=== PATIENT | female | born 1965 | race African-American/Black ===

== ENCOUNTER 2016-12-30 21:17 | Emergency (ER) | payer SELFPAY ==
[~2016-12-30] VITALS: Ht 157.5 cm; Wt 58.0 kg
[2016-12-30 21:16] VITALS: O2SAT 100
[~2016-12-30 21:17] MED LIST: FLEX10TA OR; LISI10TA PO; OMEP20TA PO; PERC5TAB12 PO; ZOFR4TAB PO
[2016-12-30 21:21] VITALS: BP 196/106; PULSE 110; RESP 16; TEMP 98.6; O2SAT 96
[2016-12-30 21:27] VITALS: O2SAT 100
[2016-12-30 21:28] VITALS: BP_SYST 187; BP_SYST 196; BP_DIAS 101; BP_DIAS 106
--- NOTE | 2016-12-30 21:32 | PD ---
HPI Chief Complaint: Altered Mental Status Time Seen by Provider: 21:23 Travel History International Travel<30 days: No Contact w/Intl Traveler<30days: No Traveled to known affect area: No History of Present Illness HPI The patient is a 51 year old female who presents to the [facility] emergency department with a history of being found by her family unresponsive. 10 minutes prior to this the patient had been awake and alert, according to family reports to ambulance services. The patient on ambulance services arrival was noted to have O2 saturations in the low 60s on room air. Respiratory rate was 4, GCS was 3 with pinpoint pupils. The patient had IV access obtained. The patient was placed on supplemental oxygen. The patient's CO2 was noted to be 90-100 and the patient was bagged en route to this facility. Narcan was administered up to 0.8 mg and then the patient became awake and alert. The patient arrives with a GCS of 15. The patient reports that she did take Lortab for pain. She is unsure of the dose. She reports that she normally takes Lortab for low back discomfort. She denies using any other drugs. The patient reports having a history of high blood pressure, however she reports that she did take her lisinopril today. The patient denies any recent fevers, cough, congestion, neck pain, chest pain, shortness of breath , abdominal pain, vomiting, diarrhea, urinary symptoms, one-sided weakness, slurred speech, facial droop, vision changes, or difficulty with word finding ability. PFSH Past Medical History Narrative Medical The patient's past medical history is significant for chronic low back pain, Hx Anticoagulant Therapy: No Arthritis: Yes (L. ANKLE ) Asthma: No Autoimmune Disease: No Cancer: No Cardiovascular Problems: Yes Chemotherapy: No COPD: No Cerebrovascular Accident: No Diabetes: No Diminished Hearing: No Endocrine: No GERD: Yes (GASTRITIS) Genitourinary: No Hypertension: Yes Immune Disorder: No Musculoskeletal: Yes Neurologic: No Psychiatric: No Reproductive: No Respiratory: No ?: Not Tubal Ligation: Yes Past Surgical History Narrative Surgical The patient's past surgical history is significant for a bilateral tubal ligation. Abdominal Surgery: Yes (TUBAL LIGATION) Hysterectomy: No Other Surgery: Yes Social History Alcohol Use: Yes (1-2x a week ) Tobacco Use: Yes (two cigars daily) Substance Use: No Allergies-Medications (Allergen,Severity, Reaction): Coded Allergies: No Known Allergies (Verified , 12/30/16) Reported Meds & Prescriptions Reported Meds & Active Scripts Active Zofran (Ondansetron Hcl) 4 Mg Tab 4 Mg PO BID Percocet 5-325 mg (Oxycodone/Acetaminophen) Oxycodone 5/325 Acetaminophen Tab 1- 2 Tab PO Q6H PRN Lisinopril/Hctz 20 mg/12.5 mg 20 mg/12.5 mg Tab 1 Tab PO DAILY Reported Omeprazole 20 mg (Omeprazole) 20 Mg Tab 20 Mg PO DAILY Flexeril (Cyclobenzaprine HCl) 10 Mg Tab 10 Mg OR HSPRN Review of Systems Except as stated in HPI: all other systems reviewed are Neg General / Constitutional: No: Fever Eyes: No: Visual changes HENT: No: Headaches Cardiovascular: No: Chest Pain or Discomfort Respiratory: No: Shortness of Breath Gastrointestinal: No: Nausea, Vomiting, Diarrhea, Abdominal Pain Genitourinary: No: Dysuria Musculoskeletal: No: Pain Skin: No Rash Neurologic: Positive: Change in Mentation, No: Weakness, Focal Abnormalities, Slurred Speech, Sensory Disturbance Psychiatric: No: Depression Endocrine: No: Polydipsia Hematologic/Lymphatic: No: Easy Bruising Physical Exam Narrative General: The patient is a well-developed well-nourished female in no acute distress on arrival. Head and Neck exam: Head is normocephalic atraumatic. Eyes: EOMI, pupils are equal round and reactive to light. Nose: Midline septum with pink mucous membranes Mouth: Dentition unremarkable. Moist mucus membranes. Posterior oropharynx is not erythematous. No tonsillar hypertrophy. Uvula midline. Airway patent. Neck: No palpable lymphadenopathy. No nuchal rigidity. No thyromegaly. Cardiovascular: Sinus tachycardia in the low 100s without murmurs, gallops, or rubs. No pulse deficit to the extremities and simultaneous auscultation and palpation of her radial artery. Lungs: Clear to auscultation bilaterally. No wheezes, rhonchi, or rales. Abdomen: Soft, without tenderness to palpation in all 4 quadrants of the abdomen. No guarding, rebound, or rigidity. Normal bowel sounds are audible. No tenderness on palpation of McBurney's point. Extremities: No clubbing, cyanosis, or edema. 2+ pulses in all 4 extremities. No calf tenderness on palpation. Back: No spinous process tenderness to palpation. No costovertebral angle tenderness to palpation. Neurologic Exam: Grossly nonfocal. The patient has strength that is 5 over 5 in all 4 extremities intact sensation over all dermatomes. No evidence of facial asymmetry. The patient is oriented to person, place, time, and situation. Skin Exam: No rash noted. Intact skin that is warm and dry. Data Data Last Documented VS Vital Signs Date Time Temp Pulse Resp B/P Pulse Ox O2 Delivery O2 Flow Rate FiO2 12/30/16 23:56 88 18 160/70 99 Room Air 12/30/16 22:32 2 12/30/16: 98.6 Orders Electrocardiogram (12/30/16:) Complete Blood Count With Diff (12/30/16:) Basic Metabolic Panel (Bmp) (12/30/16 21:23) Creatine Kinase (Cpk) (12/30/16:23) Ckmb (Isoenzyme) Profile (12/30/16:) Troponin I (12/30/16 21:) B-Type Natriuretic Peptide (12/30/16 21:23) Prothrombin Time / Inr (Pt) (12/30/16:) Act Partial Throm Time (Ptt) (12/30/16:) Urinalysis - C+S If Indicated (12/30/16 21:) Thyroid Stimulating Hormone (12/30/16 21:23) Chest, Single Ap (12/30/16 21:23) Ct Brain W/O Iv Contrast(Rout) (12/30/16 21:23) Iv Access Insert/Monitor (12/30/16 21:23) Ecg Monitoring (12/30/16 21:23) Oximetry (12/30/16 21:23) Drug Screen, Random Urine (12/30/16 21:23) Alcohol (Ethanol) (12/30/16 21:23) Salicylates (Aspirin) (12/30/16 21:23) Tylenol (Acetaminophen) (12/30/16 21:23) Sodium Chlor 0.9% 1000 Ml Inj (Ns 1000 M (12/30/16 22:15) CKMB (12/30/16 21:34) CKMB% (12/30/16 21:34) Potassium Chloride Eff (K-Lyte Cl Eff) (12/30/16 23:45) Ns + Kcl 20 Meq Inj (Ns + Kcl 20 Meq Inj (12/30/16 23:45) Labs Laboratory Tests Test 12/30/16 12/30/16 12/30/16 19:26 21:34 23:36 White Blood Count 6.3 TH/MM3 Red Blood Count 4.29 MIL/MM3 Hemoglobin 12.0 GM/DL Hematocrit 37.6 % Mean Corpuscular Volume 87.7 FL Mean Corpuscular Hemoglobin 27.9 PG Mean Corpuscular Hemoglobin 31.9 % Concent Red Cell Distribution Width 13.5 % Platelet Count 186 TH/MM3 Mean Platelet Volume 9.3 FL Neutrophils (%) (Auto) 27.0 % Lymphocytes (%) (Auto) 60.9 % Monocytes (%) (Auto) 10.4 % Eosinophils (%) (Auto) 1.2 % Basophils (%) (Auto) 0.5 % Neutrophils # (Auto) 1.7 TH/MM3 Lymphocytes # (Auto) 3.9 TH/MM3 Monocytes # (Auto) 0.7 TH/MM3 Eosinophils # (Auto) 0.1 TH/MM3 Basophils # (Auto) 0.0 TH/MM3 CBC Comment DIFF FINAL Differential Comment Prothrombin Time 10.7 SEC Prothromb Time International 1.0 RATIO Ratio Activated Partial 25.6 SEC Thromboplast Time Sodium Level 139 MEQ/L Potassium Level 3.1 MEQ/L Chloride Level 102 MEQ/L Carbon Dioxide Level 27.2 MEQ/L Anion Gap 10 MEQ/L Blood Urea Nitrogen 18 MG/DL Creatinine 1.41 MG/DL Estimat Glomerular Filtration 48 ML/MIN Rate Random Glucose 195 MG/DL Calcium Level 8.2 MG/DL Total Creatine Kinase 253 U/L Creatine Kinase MB 1.2 NG/ML Creatine Kinase MB % 0.5 % Troponin I 0.05 NG/ML B-Type Natriuretic Peptide 41 PG/ML Thyroid Stimulating Hormone 9.140 uIU/ML 3rd Gen Salicylates Level LESS THAN 1.7 MG/DL Acetaminophen Level 4.9 MCG/ML Ethyl Alcohol Level LESS THAN 3 MG/DL Urine Color LIGHT-YELLOW Urine Turbidity CLEAR Urine pH 6.0 Urine Specific Hayes 1.009 Urine Protein NEG mg/dL Urine Glucose (UA) NEG mg/dL Urine Ketones NEG mg/dL Urine Occult Blood SMALL Urine Nitrite NEG Urine Bilirubin NEG Urine Urobilinogen LESS THAN 2.0 MG/DL Urine Leukocyte Esterase NEG Urine RBC 1 /hpf Urine WBC 2 /hpf Urine Squamous Epithelial <1 /hpf Cells Urine Bacteria RARE /hpf Urine Hyaline Casts 5 /lpf Urine Mucus FEW /lpf Microscopic Urinalysis Comment CULT NOT INDICATED Urine Opiates Screen POS Urine Barbiturates Screen NEG Urine Amphetamines Screen NEG Urine Benzodiazepines Screen NEG Urine Cocaine Screen POS Urine Cannabinoids Screen POS MDM Medical Decision Making Medical Screen Exam Complete: Yes Emergency Medical Condition: Yes Medical Record Reviewed: Yes Interpretation(s) Last Impressions Head CT 12/30/162122 Signed Impressions: Service Date/Time: Friday, December 30, 2016 21:46 - CONCLUSION: No acute intracranial disease. Stu Mooney MD Chest X-Ray 12/30/162122 Signed Impressions: Service Date/Time: Friday, December 30, 2016 21:36 - CONCLUSION: No acute disease. Stu Mooney MD Differential Diagnosis Accidental narcotic overdose, versus intentional overdose, versus intracranial abnormality, versus encephalopathy Narrative Course During the course of the patients emergency department visit, the patients history, examination, and differential diagnosis were reviewed with the patient. The patient had IV access obtained and blood work sent for analysis. The patient was placed on a monitoring engineer with oximetry and blood pressure monitoring. An EKG was done on arrival. The patient's EKG shows a sinus tachycardia rate of 104 changes consistent with ventricular hypertrophy left side, no acute ST segment elevation or depression, T waves are inverted in V1. The patient will be monitored closely in the emergency department for any recurrence of respiratory depression or decreased level of consciousness given her response to Narcan administration The patient was initially provided normal saline 1 L IV fluid bolus. The patients laboratory studies were reviewed and remarkable for white count of 6.3, hemoglobin 12, platelets 186 with 60.9 lymphocytes, monocytes 10.4. CMP is remarkable for a potassium of 3.1 which was supplemented orally with K- Lyte 50 mEq by mouth 1. Creatinine 1.41, glucose 195, CPK 253 with 0.5 MB percent, troponin I 0.05, BNP 41. TSH was elevated at 9.14, PT PTT unremarkable. Urine drug screen is positive for opiates, cocaine, marijuana, he salicylate less than 1.7, acetaminophen 4.9, alcohol level was less than 3, urinalysis is unremarkable. Radiology studies were reviewed and remarkable for a chest x-ray that showed no acute abnormality. CT scan of the brain showed no acute abnormality. During the patient's observation in the emergency department, the patient had no further recurrence of respiratory depression or decreased level of consciousness. The patient has a family member available at the bedside to assist with getting her home. The patient was instructed regarding the importance of avoiding street drugs and overuse of opiates. The patient denies any suicidal or homicidal ideations. The patient is resting comfortably and feels better, is alert and in no distress. The patients results and examination findings were discussed with the patient. The repeat examination is unremarkable and benign. The history, exam, diagnostic testing, and current condition do not suggest any significant pathology to warrant further testing, continued ED treatment, admission, or surgical evaluation at this point. The vital signs have been stable. The patient does not have uncontrollable pain, intractable vomiting, or other significant symptoms. The patient's condition is stable and appropriate for discharge. The patient will pursue further outpatient evaluation with a primary care physician or other designated or consulting physician as indicated in the discharge instructions. The patient expressed understanding and was agreeable with this plan. Diagnosis Primary Impression: Altered mental status Qualified Code: R40.0 - Somnolence Additional Impressions: Overdose Qualified Code: T50.901A - Overdose, accidental or unintentional, initial encounter Polysubstance abuse Elevated TSH Referrals: Primary Care Physician Patient Instructions: General Instructions, Polysubstance Abuse (ED) Additional Instructions: The patient is given an outpatient lab slip to have her TSH and free T3-T4 rechecked in 1 week as her TSH was noted to be elevated. Med/Other Pt SpecificInfo: No Change to Meds Disposition: 01 DISCHARGE HOME Condition: Stable Beverly Sellers MD December 30, 2016 21:32
--- NOTE | 2016-12-30 21:49 | RADRPT ---
EXAM DATE/TIME: 12/30/2016 21:36 [facility] COMPARISON: No previous studies available for comparison. INDICATIONS : Short of breath MEDICAL HISTORY : Hypertension. SURGICAL HISTORY : None. ENCOUNTER: Initial ACUITY: 1 day PAIN SCORE: 0/10 LOCATION: Bilateral chest FINDINGS: A single view of the chest demonstrates the lungs to be symmetrically aerated without evidence of mas s, infiltrate or effusion. The cardiomediastinal contours are unremarkable. Osseous structures are intact. CONCLUSION: No acute disease. Stu Mooney MD on December 30, 2016 at 21:46 Board Certified Radiologist. This report was verified electronically.
[2016-12-30 22:02] LABS: AUTOMATED NEUTROPHIL # 1.7 TH/MM3 (1.8-7.7); BASOPHIL % 0.5 % (0.0-2.0); EOSINOPHIL # 0.1 TH/MM3 (0-0.4); EOSINOPHIL % 1.2 % (0.0-4.0); HEMATOCRIT 37.6 % (35.0-46.0); HEMO FLAGS DIFF FINAL; LYMPH % 60.9 % (9.0-44.0); LYMPHOCYTE # 3.9 TH/MM3 (1.0-4.8); MEAN CELL VOLUME 87.7 FL (80.0-100.0); MEAN CORPUSCULAR HEMOGLOBIN 27.9 PG (27.0-34.0); MEAN CORPUSCULAR HGB CONC 31.9 % (32.0-36.0); MONO % 10.4 % (0.0-8.0); PLATELET COUNT 186 TH/MM3 (150-450); RED BLOOD COUNT 4.29 MIL/MM3 (4.00-5.30); RED CELL DISTRIBUTION WIDTH 13.5 % (11.6-17.2); WHITE BLOOD COUNT 6.3 TH/MM3 (4.0-11.0)
--- NOTE | 2016-12-30 22:02 | RADRPT ---
EXAM DATE/TIME: 12/30/2016 21:46 [facility] COMPARISON: CT BRAIN W/O CONTRAST, May 27, 2009, 22:25. INDICATIONS : Altered mental status. Found unresponsive. RADIATION DOSE: 35.93 CTDIvol (mGy) MEDICAL HISTORY : Cardiovascular disease. Hypertension. Gastroesophageal reflux disease.Gastritis. SURGICAL HISTORY : Tubal ligation. ENCOUNTER: Initial ACUITY: 1 day PAIN SCALE: 0/10 LOCATION: cranial TECHNIQUE: Multiple contiguous axial images were obtained of the head. Using automated exposure control and adj ustment of the mA and/or kV according to patient size, radiation dose was kept as low as reasonably a chievable to obtain optimal diagnostic quality images. FINDINGS: CEREBRUM: The ventricles are normal for age. No evidence of midline shift, mass lesion, hemorrhage or acute in farction. No extra-axial fluid collections are seen. POSTERIOR FOSSA: The cerebellum and brainstem are intact. The 4th ventricle is midline. The cerebellopontine angle i s unremarkable. EXTRACRANIAL: The visualized portion of the orbits is intact. SKULL: The calvaria is intact. No evidence of skull fracture. CONCLUSION: No acute intracranial disease. Stu Mooney MD on December 30, 2016 at 21:59 Board Certified Radiologist. This report was verified electronically.
[2016-12-30 22:04] LABS: APTT (PATIENT) 25.6 SEC (24.3-30.1); PROTHROMBIN TIME - PATIENT 10.7 SEC (9.8-11.6)
[2016-12-30] MEDS ORDERED: SODIUM CHLOR 0.9% 1000 ML INJ 1,000 ML IV ONE (22:15)
[2016-12-30 22:32] VITALS: BP 165/94; PULSE 79; RESP 18; O2SAT 100
[2016-12-30 22:38] LABS: ANION GAP 10 MEQ/L (5-15)
[2016-12-30 22:48] LABS: ACETAMINOPHEN 4.9 MCG/ML (10.0-30.0); BICARBONATE 27.2 MEQ/L (21.0-32.0); BLOOD UREA NITROGEN 18 MG/DL (7-18); CHLORIDE 102 MEQ/L (98-107); CREATINE KINASE 253 U/L (26-192); GLOMERULAR FILTRATION RATE 48 ML/MIN (>89); POTASSIUM 3.1 MEQ/L (3.5-5.1); SODIUM (NA) 139 MEQ/L (136-145)
[2016-12-30 23:07] LABS: CKMB 1.2 NG/ML (0.5-3.6)
[2016-12-30] MEDS ORDERED: NS + KCL 20 MEQ INJ 1,000 ML IV SCH (23:45)
[2016-12-30] MEDS ORDERED: POTASSIUM CHLORIDE 25 MEQ EFFERVESCENT TAB PO ONE (23:45)
[2016-12-30 23:53] LABS: BACTERIA, URINE RARE /hpf; BLOOD, URINE SMALL (NEG); COMMENT (UR) CULT NOT INDICATED; CULTURE IF INDICATED CULT NOT INDICATED; GLUCOSE,URINE NEG (NEG); HYALINE CAST, URINE 5 /lpf (RARE); KETONE, URINE NEG (NEG); MUCUS URINE FEW /lpf (OCC); NITRITE,URINE NEG (NEG); SQUAMOUS EPITHELIAL CELL URINE <1 /hpf (0-5); URINE COLOR LIGHT-YELLOW (YELLW/STRAW)
[2016-12-30 23:56] VITALS: BP 160/70; PULSE 88; RESP 18; O2SAT 99
[2016-12-30 23:57] LABS: AMPHETAMINE, URINE NEG (NEG); BARBITURATES, URINE NEG (NEG); COCAINE, URINE POS (NEG)
--- NOTE | 2016-12-31 13:57 | EKG ---
Date Performed: 12/30/2016 Time Performed: 21:23:05 PTAGE: 51 years EKG: SINUS TACHYCARDIA POSSIBLE LEFT ATRIAL ENLARGEMENT POSSIBLE LEFT VENTRICULAR HYPERTROPHY AB NORMAL ECG Compared to prior tracing no significant change DOCTOR: Jaime Hurd Interpretating Date/Time 12/31/2016 13:57:05
== END 2016-12-31 02:22 | disposition home or self-care (01) ==
LOC: NEPE 21:17
DX: R41.82 Altered mental status, unspecified (principal); R40.0 Somnolence; T40.2X1A Poisoning by other opioids, accidental (unintentional), initial encounter; R00.0 Tachycardia, unspecified; R94.31 Abnormal electrocardiogram [ECG] [EKG]; I10 Essential (primary) hypertension; F12.90 Cannabis use, unspecified, uncomplicated; F19.10 Other psychoactive substance abuse, uncomplicated; Z72.0 Tobacco use
CPT/HCPCS: 70450; 71010; 80048; 80307; 81001; 82550; 82552; 83880; 84443; 84484; 85025; 85610; 85730; 93005; 99285; J7030